=== PATIENT | female | born 1990 | race Caucasian/White ===

== ENCOUNTER 2018-04-02 19:59 | Emergency (ER) | payer SELFPAY ==
[2018-04-02] MEDS ORDERED: ACETAMINOPHEN 325 MG TABLET PO ONE (20:21)
--- NOTE | 2018-04-02 20:27 | ER Document Report ---
ED General - General Chief Complaint: Pain All Over Stated Complaint: FATIGUE,BODY SWEAT,BODY ACHES Time Seen by Provider: 04/02/18 20:11 Mode of Arrival: Ambulatory Notes: 27-year-old female presents to ED for body aches fever, fatigue, and headache. Temperature is 100.5 pulse is 123apically and O2 sat is 100% at this time . TRAVEL OUTSIDE OF THE [place] IN LAST 30 DAYS: No - HPI Onset: Other - 2 days Onset/Duration: Gradual, Worse Quality of pain: Achy Severity: Mild Pain Level: 2 Associated symptoms: Body/muscle aches, Chills, Nonproductive cough, Fever, Rhinnorhea, Sinus pain/drainage Exacerbated by: Denies Relieved by: Denies Similar symptoms previously: Yes Recently seen / treated by doctor: No - Related Data Allergies/Adverse Reactions: No Known Allergies Allergy (Verified 04/02/18 20:00) Past Medical History - General Information source: Patient - Social History Smoking Status: Never Smoker Cigarette use (# per day): No Chew tobacco use (# tins/day): No Smoking Education Provided: No Frequency of alcohol use: None Drug Abuse: None Lives with: Family Family History: Reviewed & Not Pertinent Patient has suicidal ideation: No Patient has homicidal ideation: No - Past Medical History Cardiac Medical History: Reports: None Pulmonary Medical History: Reports: None EENT Medical History: Reports: None Neurological Medical History: Reports: None Endocrine Medical History: Reports: None Renal/ Medical History: Reports: None Malignancy Medical History: Reports: None GI Medical History: Reports: None Musculoskeletal Medical History: Reports None Skin Medical History: Reports None Psychiatric Medical History: Reports: None Traumatic Medical History: Reports: None Infectious Medical History: Reports: None Past Surgical History: Reports: Hx Section - 08/06/14 - Immunizations Immunizations up to date: Yes Review of Systems - Review of Systems Constitutional: Chills, Fever, Malaise, Recent illness EENT: Nose pain, Nose congestion, Nose discharge, Sinus pressure, Sinus discharge Cardiovascular: No symptoms reported Respiratory: Cough Gastrointestinal: No symptoms reported Genitourinary: No symptoms reported Female Genitourinary: No symptoms reported Musculoskeletal: No symptoms reported Skin: No symptoms reported Hematologic/Lymphatic: No symptoms reported Neurological/Psychological: No symptoms reported -: Yes All other systems reviewed and negative Physical Exam - Vital signs Vitals: Temp Pulse Resp BP Pulse Ox 99.8 F 134 H 22 H 118/78 100 04/02/18 20:05 04/02/18 20:05 04/02/18 20:05 04/02/18 20:05 04/02/18 20:05 Interpretation: Tachycardic - 124, Tachypneic - 24, Febrile - 100.5 - General General appearance: Appears well, Alert - HEENT Head: Normocephalic, Atraumatic Eyes: Normal Pupils: PERRL Ears: Normal External canal: Normal Tympanic membrane: Normal Sinus: Normal Nasal: Purulent discharge, Clear rhinorrhea Mouth/Lips: Normal Mucous membranes: Normal Pharynx: Normal Neck: Normal - Respiratory Respiratory status: No respiratory distress Chest status: Nontender Breath sounds: Normal Chest palpation: Normal - Cardiovascular Rhythm: Regular Heart sounds: Normal auscultation Murmur: No - Abdominal Inspection: Normal Distension: No distension Bowel sounds: Normal Tenderness: Nontender Organomegaly: No organomegaly - Back Back: Normal, Nontender - Extremities General upper extremity: Normal inspection, Nontender, Normal color, Normal ROM , Normal temperature General lower extremity: Normal inspection, Nontender, Normal color, Normal ROM , Normal temperature, Normal weight bearing. No: Soha's sign - Neurological Neuro grossly intact: Yes Cognition: Normal Orientation: AAOx4 Aniket Coma Scale Eye Opening: Spontaneous Horicon Coma Scale Verbal: Oriented Aniket Coma Scale Motor: Obeys Commands Aniket Coma Scale Total: 15 Speech: Normal Motor strength normal: LUE, RUE, LLE, RLE Sensory: Normal - Psychological Associated symptoms: Normal affect, Normal mood - Skin Skin Temperature: Warm Skin Moisture: Dry Skin Color: Normal Course - Re-evaluation Re-evalutation: 04/03/18 00:30 Patient treated with Macrobid, Compazine, Benadryl, and ibuprofen for her UTI and headache. She did have a fever when she first came in as well as an elevated pulse of 124 1 just I first examined her and when she discharged her pulse was 100. She was also given 2 L of fluids. Her fever went from 100.5-97. - Vital Signs Vital signs: Temp Pulse Resp BP Pulse Ox 98.2 F 100 19 104/63 93 04/02/18 22:33 04/02/18 22:33 04/02/18 22:33 04/02/18 22:33 04/02/18 22:33 - Laboratory Result Diagrams: 04/02/18 20:30 04/02/18 21:38 Laboratory results interpreted by me: 04/02/18 04/02/18 04/02/18 20:30 20:52 21:38 WBC 16.1 H Absolute Neutrophils 11.4 H Absolute Monocytes 1.8 H Sodium 134.8 L Carbon Dioxide 21 L Albumin 3.4 L Urine Protein 30 H Urine Ketones 20 H Ur Leukocyte Esterase SMALL H - Diagnostic Test Radiology reviewed: Image reviewed, Reports reviewed Discharge - Discharge Clinical Impression: UTI (urinary tract infection) Qualifiers: Urinary tract infection type: site unspecified Hematuria presence: without hematuria Qualified Code(s): N39.0 - Urinary tract infection, site not specified Headache Qualifiers: Headache type: unspecified Headache chronicity pattern: unspecified pattern Intractability: not intractable Qualified Code(s): R51 - Headache Condition: Stable Disposition: HOME, SELF-CARE Instructions: Family Physicians / Practices Additional Instructions: URINARY TRACT INFECTION: Your evaluation indicates that you have a urinary tract infection. This is due to germs growing in the bladder. This is a common problem. This infection usually responds quickly to antibiotics. Your antibiotic should be taken exactly as prescribed. Drink plenty of fluids -- three to four quarts a day. Occasionally, a bladder anesthetic will be prescribed to help stop the feeling of urgency until the antibiotic has a chance to clear the infection. This may cause your urine to be dark orange. Certain urine infections require a culture. If the doctor obtained a culture, the results will be back in two days. You should call to see if a change in treatment is needed. A repeat urinalysis after you finish treatment is often recommended. The physician will let you know if further testing is required. Call the doctor if you develop fever, chills, flank pain, inability to urinate, or blood in the urine. HEADACHE: The physician does not feel that the headache you are experiencing has a serious underlying cause. Most headaches are due to emotional stress, with resultant muscle tension (tension headache). Occasionally, headaches are secondary to changes in the blood vessels of the scalp (vascular headache and migraine headache). Sometimes, a headache is the first symptom of another developing illness, such as a viral infection. You have no evidence of stroke, bleeding, meningitis, or other serious cause of your headache. The treatment of headaches varies with the severity and cause of the pain. Not all headaches need pain shots. In fact, there is evidence that using narcotics for headaches may make them worse in the long run. The physician will determine the therapy that's in your best interest. If you develop a fever, if the headache is different from any you've previously experienced, or if the headache progressively worsens, then call your physician at once or go to the emergency room. USE OF DIPHENHYDRAMINE: Diphenhydramine (Benadryl) is an antihistamine and has been recommended to help treat your headache and to prevent side effects of other medications used to treat headaches. The medication can be repeated four times daily. Age Elixir (12.5 mg/tsp) 25 mg pill adult 1-2 tabs Antihistamines may cause drowsiness, especially with the first dose. Do not operate machinery or drive while under the effects of the medication. Do not combine the medication with alcohol, or with any other medication without talking to your doctor. COMPAZINE FOR HEADACHE: You have received therapy for headaches, using Compazine. This treatment is dramatically successful in relieving the headache in about 50 percent of cases. When it works, it provides a rapid method of eliminating the headache without resorting to narcotics (and the problems associated with them). Most patients still feel fully alert after the Compazine, but others may be slightly drowsy. It's best not to drive or work with machinery for six to eight hours. Do not take alcohol or other medication unless you discuss it with the doctor. If you develop tightness and spasms in your muscles, especially the neck and tongue, you should return. This is a side effect which can be treated. Ibuprofen Ibuprofen is an excellent, safe drug for pain control. In addition, it has potent antiinflammatory effects which are beneficial, especially in the treatment of injuries, arthritis, or tendonitis. It's best to take ibuprofen with food. Persons with ulcer disease or allergy to aspirin should notify their physician of this before taking ibuprofen. Take the medication exactly as prescribed. Don't take additional doses unless instructed to do so by your doctor. If you develop wheezing, shortness of breath, hives, faintness, stomach pain, vomiting, or dark black stools, return for re-evaluation at once. NITROFURANTOIN (MACRODANTIN, MACROBID): You have received a prescription for nitrofurantoin (Macrodantin). This antibiotic is used for urinary tract infections. Women who are or nursing should notify the physician before taking this medicine. If you have ever had a problem caused by this medication in the past, be sure the physician is aware of it. Common side effects of this medicine include nausea, vomiting, or decreased appetite. Notify your physician if these side effects become severe. Immediately stop this medicine and call the physician if you develop cough , shortness of breath, chest pain, weakness, jaundice (yellow color of the skin and whites of the eyes), or a skin rash. FOLLOW-UP CARE: If you have been referred to a physician for follow-up care, call the physician s office for an appointment as you were instructed or within the next two days. If you experience worsening or a significant change in your symptoms, notify the physician immediately or return to the Emergency Department at any time for re-evaluation. Prescriptions: Prochlorperazine Maleate [Compazine 10 mg Tablet] 10 mg PO Q6HP PRN #10 tablet PRN Reason: Nitrofurantoin Monohyd/M-Cryst [Macrobid 100 mg Capsule] 100 mg PO BID #14 capsule
[2018-04-02 20:54] LABS: ABSOLUTE BASOPHILS # (AUTO) 0.1 10^3/uL (0.0-0.2); ABSOLUTE LYMPHOCYTES (AUTO) 2.8 10^3/uL (0.5-4.7); ABSOLUTE MONOCYTES (AUTO) 1.8 10^3/uL (0.1-1.4); ABSOLUTE NEUT (AUTO) 11.4 10^3/uL (1.7-8.2); BASOPHILS % (AUTO) 0.4 % (0-2); EOSINOPHILS % (AUTO) 0.2 % (0-6); HEMATOCRIT 44.3 % (36.0-47.0); HEMOGLOBIN 14.8 g/dL (12.0-15.5); LYMPHOCYTES % (AUTO) 17.6 % (13-45); MEAN CORPUSCULAR HEMOGLOBIN 28.4 pg (27.0-33.4); MEAN CORPUSCULAR HGB CONC 33.4 g/dL (32.0-36.0); MEAN CORPUSCULAR VOLUME 85 fl (80-97); MONOCYTES % (AUTO) 11.3 % (3-13); PLATELET COUNT 274 10^3/uL (150-450); RED BLOOD COUNT 5.23 10^6/uL (3.72-5.28); RED CELL DISTRIBUTION WIDTH 13.2 % (11.5-14.0); SEGMENTED NEUTROPHILS % (AUTO) 70.5 % (42-78); TOTAL CELLS COUNTED % (AUTO) 100 %; WHITE BLOOD COUNT 16.1 10^3/uL (4.0-10.5)
--- NOTE | 2018-04-02 21:02 | RADIOLOGY REPORT (SQ) ---
EXAM DESCRIPTION: CHEST 2 VIEWS COMPLETED DATE/TIME: 04/02/2018 8:50 pm REASON FOR STUDY: fever body aches COMPARISON: None. EXAM PARAMETERS: NUMBER OF VIEWS: two views TECHNIQUE: Digital Frontal and Lateral radiographic views of the chest acquired. RADIATION DOSE: NA LIMITATIONS: none FINDINGS: LUNGS AND PLEURA: No opacities, masses or pneumothorax. No pleural effusion. MEDIASTINUM AND HILAR STRUCTURES: No masses or contour abnormalities. HEART AND VASCULAR STRUCTURES: Heart normal size. No evidence for failure. BONES: No acute findings. HARDWARE: None in the chest. OTHER: No other significant finding. IMPRESSION: NO ACUTE RADIOGRAPHIC FINDING IN THE CHEST. TECHNICAL DOCUMENTATION: JOB ID: [id number] [employer]- All Rights Reserved Reading location - IP/workstation name: [email or web address]
[2018-04-02 21:23] LABS: APPEARANCE,URINE CLOUDY; BILIRUBIN,URINE NEGATIVE (NEGATIVE); COLOR,URINE AMBER; GLUCOSE, URINE NEGATIVE (NEGATIVE); KETONES,URINE 20 mg/dL (NEGATIVE); LEUKOCYTE ESTERASE,URINE SMALL (NEGATIVE); NITRITE,URINE NEGATIVE (NEGATIVE); PROTEIN,URINE 30 mg/dL (NEGATIVE); URINE SPECIFIC GRAVITY 1.016; UROBILINOGEN,URINE NEGATIVE mg/dL (<2.0)
[2018-04-02] MEDS ORDERED: PROCHLORPERAZINE MALEATE 10 MG TABLET PO ONE (21:40)
[2018-04-02] MEDS ORDERED: DIPHENHYDRAMINE HCL 50 MG CAPSULE PO ONE (21:40)
[2018-04-02] MEDS: RINGERS SOLUTION,LACTATED 1,000 ML IV PRN ×2 (21:45→22:27)
[2018-04-02 22:08] LABS: ALANINE AMINOTRANSFERASE 22 U/L (9-52); ALBUMIN 3.4 g/dL (3.5-5.0); ALKALINE PHOSPHATASE 66 U/L (38-126); ANION GAP 8 (5-19); ASPARTATE AMINO TRANSFERASE 17 U/L (14-36); BILIRUBIN,DIRECT 0.3 mg/dL (0.0-0.4); BILIRUBIN,TOTAL 1.1 mg/dL (0.2-1.3); BLOOD UREA NITROGEN 8 mg/dL (7-20); CALCIUM 9.2 mg/dL (8.4-10.2); CARBON DIOXIDE 21 mmol/L (22-30); CHLORIDE 106 mmol/L (98-107); GLUCOSE 95 mg/dL (75-110); POTASSIUM 3.8 mmol/L (3.6-5.0); SODIUM 134.8 mmol/L (137-145); TOTAL PROTEIN 6.4 g/dL (6.3-8.2)
[2018-04-02] MEDS ORDERED: NITROFURANTOIN MONOHYD/M-CRYST 100 MG CAPSULE PO ONE (22:21)
[2018-04-02 22:38] VITALS: BP 104/63
== END 2018-04-02 22:39 | disposition home or self-care (01) ==
LOC: ER 19:59
DX: N39.0 Urinary tract infection, site not specified (principal); R51 Headache; M79.1 Myalgia; R53.83 Other fatigue; R50.9 Fever, unspecified; J34.89 Other specified disorders of nose and nasal sinuses; R05 Cough; R53.81 Other malaise; R09.81 Nasal congestion
CPT/HCPCS: 99284; 36415; 87086; 84703; 85025; 87088; 80053; 81001; 87186; 83605; 71046; S0183; J7120; J8499

== ENCOUNTER 2018-12-20 21:55 | Emergency (ER) | payer MEDICAID ==
--- NOTE | 2018-12-20 23:18 | ER Document Report ---
HPI - HPI Patient complains to provider of: Anxiety Time Seen by Provider: 12/20/18 23:12 Pain Level: 2 Context: Patient is otherwise healthy 28-year-old female presents to the emergency department for what she thinks is an anxiety attack. Patient states she had some shortness of breath, feeling very tired and tightening her chest. States she feels as though her chest is sore. States she feels like she "ran a marathon." Patient states the last 3 days she has had extensive arguments with her mother. They have become very heated and she has been intermittently crying off and on. Patient states "I just do not know what to do." Patient is in tears when speaking to me. Patient is adamantly denying suicidal ideations or homicidal ideations. Patient's denying any chest pain at rest at this time. She is denying any shortness of breath. States she has not been around her mom for the last couple of hours and feels as though when she goes home she will continue to not be around her mother. States her grandmother is in the emergency room with her. - REPRODUCTIVE LMP: 12/08 Reproductive: DENIES: : Past Medical History - General Information source: Patient - Social History Smoking Status: Unknown if Ever Smoked Family History: Reviewed & Not Pertinent Renal/ Medical History: Denies: Hx Peritoneal Dialysis Past Surgical History: Reports: Hx Section - 08/06/14 - Immunizations Immunizations up to date: Yes Vertical Provider Document - CONSTITUTIONAL Agree With Documented VS: Yes Notes: GENERAL: Alert, interacts well. Intermittently crying but calms down easily with conversation HEAD: Normocephalic, atraumatic. EYES: Pupils equal, round, and reactive to light. Extraocular movements intact. ENT: Oral mucosa moist, tongue midline. NECK: Full range of motion. Supple. Trachea midline. LUNGS: Clear to auscultation bilaterally, no wheezes, rales, or rhonchi. No respiratory distress. HEART: Regular rate and rhythm. No murmur ABDOMEN: Soft, non-tender. Non-distended. Bowel sounds present in all 4 quadrants. EXTREMITIES: Moves all 4 extremities spontaneously. No edema, normal radial and dorsalis pedis pulses bilaterally. No cyanosis. BACK: no cervical, thoracic, lumbar midline tenderness. No saddle anesthesia, normal distal neurovascular exam. NEUROLOGICAL: Alert and oriented x3. Normal speech. cranial nerves II through XII grossly intact PSYCH: Normal affect, depressed mood. SKIN: Warm, dry, normal turgor. No rashes or lesions noted. - INFECTION CONTROL TRAVEL OUTSIDE OF THE [place] IN LAST 30 DAYS: No Course - Re-evaluation Re-evalutation: 12/20/18 23:14 I have discussed at length with patient my recommendations. I discussed that unfortunately do not have mental health evaluators in the emergency department at this time. I have discussed giving the patient the mental health team community outpatient referral list. I have also discussed that I will put the patient's name and contact information in the full been for social work and psychiatric services. I discussed that she could stay in the emergency department until the morning to personally meet with a mental health evaluators. Patient states she is here with her grandmother and she feels as if she is safe going home with her grandmother. States she will follow-up outpatient. Patient continues to deny suicidal or homicidal ideations. Patient states she has some minor discomfort more so when you push the anterior aspect of her chest. Patient's denying any respiratory distress at this time. Patient states "I just feel like I cannot fight with her anymore." She is speaking about the argument she has been having with her mother. Patient states his arguments have never become physical they are always verbal. I feel confident in patient discharge home at this time. Again patient demographic sticker was placed in the referral box for social work in mental health. - Vital Signs Vital signs: Temp Pulse Resp BP Pulse Ox 97.7 F 94 20 120/79 96 12/20/18 22:14 12/20/18 22:14 12/20/18 22:14 12/20/18 22:14 12/20/18 22:14 Discharge - Discharge Clinical Impression: Anxiety Condition: Stable Disposition: HOME, SELF-CARE Instructions: Anxiety ([facility]) Additional Instructions: As we discussed you have been seen and treated in the emergency department for potential anxiety attack. It is normal to have your heart race and also feel short of breath during anxiety attack. No other your come down your symptoms have resolved. I have given you a list of mental health team community outpatient referrals and also placed your information in the referral box for mental health evaluators here in the emergency room. Hopefully they will reach out to you in the next couple of days. Please make sure you also take the referral list I have given you and reach out to 1 of these facilities. Please also return to the emergency room should you have any other concerns. Forms: Return to Work
[2018-12-20 23:35] VITALS: BP 118/72
--- NOTE | 2018-12-21 23:45 | EKG REPORT ---
SEVERITY:- NORMAL ECG - SINUS RHYTHM : Confirmed by: Bonny Mcgrath MD 21-Dec-2018 23:44:15
== END 2018-12-20 23:35 | disposition home or self-care (01) ==
LOC: ER 21:55
DX: F41.9 Anxiety disorder, unspecified (principal); R06.02 Shortness of breath; R53.83 Other fatigue; R07.89 Other chest pain
CPT/HCPCS: 93005; 93010; 99284

== ENCOUNTER 2020-01-11 05:40 | Emergency (ER) | payer MEDICAID, OTHER ==
[2020-01-11] MEDS ORDERED: NORMAL SALINE 1000 ML 1,000 ML IV ONE (06:13)
[2020-01-11] MEDS ORDERED: MORPHINE SULFATE 10 MG/ML INJ IV ONE (06:13)
--- NOTE | 2020-01-11 06:14 | ER Document Report ---
ED Medical Screen (RME) - General Chief Complaint: Abdominal Pain Stated Complaint: LEFT SIDED ABDOMINAL PAIN Time Seen by Provider: 01/11/20 05:57 Notes: 29-year-old female with chief complaint of sudden onset upper abdominal pain that started just prior to arrival and woke her from her sleep. She reports the pain is sharp and stabbing, made her nauseated. She points to all across her upper abdomen when I asked where the location of pain is. She denies any surgeries, daily medications, alcohol, recreational drugs, smoking, or medical history. She states she is not currently sexually active. She denies flank pain, chest pain, urinary symptoms, vaginal bleeding or discharge. She denies history of the same pain. She comes by EMS and was given 4 mg of Zofran. TRAVEL OUTSIDE OF THE [place] IN LAST 30 DAYS: No - Related Data Allergies/Adverse Reactions: No Known Allergies Allergy (Verified 01/11/20 05:50) Past Medical History Renal/ Medical History: Denies: Hx Peritoneal Dialysis Past Surgical History: Reports: Hx Section - 08/06/14 - Immunizations Immunizations up to date: Yes Physical Exam - Vital signs Vitals: Temp Pulse Resp BP Pulse Ox 97.4 F 98 25 H 118/78 100 01/11/20 05:51 01/11/20 05:51 01/11/20 05:51 01/11/20 05:51 01/11/20 05:51 - Abdominal Tenderness: Tender - Tender all across the upper abdomen in every location, nonspecific, lower abdomen is benign Course - Re-evaluation Re-evalutation: I have greeted and performed a rapid initial assessment of this patient. A comprehensive ED assessment and evaluation of the patient, analysis of test results and completion of the medical decision making process will be conducted by additional ED providers. - Vital Signs Vital signs: Temp Pulse Resp BP Pulse Ox 97.4 F 98 25 H 118/78 100 01/11/20 05:51 01/11/20 05:51 01/11/20 05:51 01/11/20 05:51 01/11/20 05:51
[2020-01-11 06:18] LABS: ABSOLUTE BASOPHILS # (AUTO) 0.1 10^3/uL (0.0-0.2); ABSOLUTE EOSINOPHILS # (AUTO) 0.2 10^3/uL (0.0-0.6); ABSOLUTE LYMPHOCYTES (AUTO) 5.1 10^3/uL (0.5-4.7); ABSOLUTE MONOCYTES (AUTO) 0.9 10^3/uL (0.1-1.4); ABSOLUTE NEUT (AUTO) 5.9 10^3/uL (1.7-8.2); BASOPHILS % (AUTO) 0.7 % (0-2); EOSINOPHILS % (AUTO) 1.8 % (0-6); HEMATOCRIT 42.6 % (36.0-47.0); HEMOGLOBIN 14.5 g/dL (12.0-15.5); LYMPHOCYTES % (AUTO) 41.6 % (13-45); MEAN CORPUSCULAR HEMOGLOBIN 29.3 pg (27.0-33.4); MEAN CORPUSCULAR VOLUME 86 fl (80-97); MONOCYTES % (AUTO) 7.3 % (3-13); PLATELET COUNT 273 10^3/uL (150-450); RED BLOOD COUNT 4.94 10^6/uL (3.72-5.28); RED CELL DISTRIBUTION WIDTH 13.5 % (11.5-14.0); SEGMENTED NEUTROPHILS % (AUTO) 48.6 % (42-78); TOTAL CELLS COUNTED % (AUTO) 100 %; WHITE BLOOD COUNT 12.2 10^3/uL (4.0-10.5)
[2020-01-11 06:40] LABS: ALBUMIN 4.2 g/dL (3.5-5.0); ALKALINE PHOSPHATASE 56 U/L (38-126); ANION GAP 7 (5-19); ASPARTATE AMINO TRANSFERASE 24 U/L (14-36); BILIRUBIN,TOTAL 0.7 mg/dL (0.2-1.3); BLOOD UREA NITROGEN 14 mg/dL (7-20); CALCIUM 9.8 mg/dL (8.4-10.2); CARBON DIOXIDE 25 mmol/L (22-30); CHLORIDE 105 mmol/L (98-107); GLUCOSE 107 mg/dL (75-110); POTASSIUM 4.3 mmol/L (3.6-5.0); TOTAL PROTEIN 7.4 g/dL (6.3-8.2)
[2020-01-11 06:56] LABS: APPEARANCE,URINE CLOUDY; BILIRUBIN,URINE NEGATIVE (NEGATIVE); COLOR,URINE YELLOW; GLUCOSE, URINE NEGATIVE (NEGATIVE); KETONES,URINE NEGATIVE (NEGATIVE); LEUKOCYTE ESTERASE,URINE TRACE (NEGATIVE); NITRITE,URINE NEGATIVE (NEGATIVE); PROTEIN,URINE 30 mg/dL (NEGATIVE); URINE SPECIFIC GRAVITY 1.024; UROBILINOGEN,URINE NEGATIVE mg/dL (<2.0)
--- NOTE | 2020-01-11 07:19 | RADIOLOGY REPORT (SQ) ---
EXAM DESCRIPTION: US ABDOMEN LIMITED COMPLETED DATE/TME: 01/11/2020 06:12 CLINICAL HISTORY: 29 years Female, upper abd pain Comparison: None. LIMITATIONS: None. FINDINGS: Gallbladder, negative sonographic Stephenson's test, liver, a 0.3-cm diameter common bile duct, no intrahepatic ductal dilation, hepatopetal patent flow of the portal vein, 11-cm right kidney, pancreas, visualized vasculature/abdominal aorta, and no significant ascites appear otherwise unremarkable. IMPRESSION: Normal RUQ-Abdominal Sonogram.
--- NOTE | 2020-01-11 07:51 | RADIOLOGY REPORT (SQ) ---
EXAM DESCRIPTION: CT ABDOMEN PELVIS WITHOUT IV CONTRAST COMPLETED DATE/TME: 01/11/2020 07:11 CLINICAL HISTORY: 29 years, Female, llq abd pain/urinary urgency/left flank pain Comparison: None TECHNIQUE: Contiguous axial CT images of the abdomen and pelvis were obtained. Sagittal and coronal reformats were reviewed. This exam was performed according to our departmental dose-optimization program, which includes automated exposure control, adjustment of the mA and/or kV according to patient size and/or use of iterative reconstruction technique. FINDINGS: Lung bases: Mild hypoventilatory changes in the lung bases. Liver:Unremarkable. No focal liver lesion. Gallbladder:Unremarkable. No gallstones. No gallbladder wall thickening or pericholecystic fluid. Spleen:Unremarkable Pancreas: Pancreas is unremarkable. Adrenal glands:Within normal limits. Kidneys/ureters: Several tiny, approximately 1 mm or less renal calculi. No hydronephrosis. Left kidney is edematous in appearance with mild hydronephrosis and hydroureter. The distal ureters not well visualized and there are old pole pelvic phleboliths. Distal ureteral calculus is not visualized but suspected. Stomach/small bowel/colon: Stomach is unremarkable. Small bowel is unremarkable. Colon is unremarkable. Appendix: No evidence of appendicitis. Peritoneum: No free fluid. Vascular structures: within normal limits Lymph nodes: No abnormal lymph nodes. Bladder:Unremarkable. Pelvic organs: No acute abnormality Bones: No acute osseous abnormality. Soft tissues: Unremarkable.. IMPRESSION: Left hydronephrosis and hydroureter. The distal ureter is not clearly visualized and there are multiple pelvic phleboliths which makes visualization of a ureteral calculus difficult. An obstructing stone is not discretely seen but suspected. Alternatively, this appearance can be seen with a recently passed calculus. There is no hydronephrosis on the right. No other acute findings in the abdomen or pelvis.
[2020-01-11] MEDS ORDERED: KETOROLAC TROMETHAMINE INJ/PF 30 MG/1 ML SDV IV ONE (08:21)
--- NOTE | 2020-01-11 08:30 | ER Document Report ---
Entered by ADRIAN EARL SCRIBE 01/11/20 0730 Acting as scribe for:RAUL MURRAY MD ED GI/ - General Chief Complaint: Abdominal Pain Stated Complaint: LEFT SIDED ABDOMINAL PAIN Time Seen by Provider: 01/11/20 05:57 Primary Care Provider: JAE KING PA-C [Primary Care Provider] - Follow up as needed Mode of Arrival: Ambulatory Information source: Patient Notes: This 29 year old female patient presents to the emergency department today with complaints of left sided abdominal pain that woke her up from sleep. Patient states that she has also had nausea, vomiting, diarrhea, and urinary urgency. Patient states she feels like she has to go to the bathroom but she does not urinate much when she tries to go. Patient mentions that she has had a lot of recent stressors since "December 25", stating that her ex- is "trying to get custody of their child". Patient states her last menstrual period was the beginning of December and she is not on control but she does not have concerns for . Patient denies a history of ovarian cyst, diverticulitis, or gastric ulcers. Patient has any vaginal bleeding, vaginal discharge, fevers, HI or SI. TRAVEL OUTSIDE OF THE [place] IN LAST 30 DAYS: No - Related Data Allergies/Adverse Reactions: No Known Allergies Allergy (Verified 01/11/20 05:50) Past Medical History - General Information source: Patient - Social History Smoking Status: Never Smoker Cigarette use (# per day): No Frequency of alcohol use: None Drug Abuse: None Lives with: Family Family History: Reviewed & Not Pertinent Patient has homicidal ideation: No - Medical History Medical History: Negative Past Surgical History: Reports: Hx Section - 08/06/14 - Immunizations Immunizations up to date: Yes Review of Systems - Review of Systems Constitutional: denies: Fever EENT: No symptoms reported Cardiovascular: No symptoms reported Respiratory: No symptoms reported Gastrointestinal: Abdomen distended, Abdominal pain Genitourinary: See HPI, Frequency, Flank pain, Urgency Female Genitourinary: No symptoms reported Musculoskeletal: No symptoms reported Skin: No symptoms reported Hematologic/Lymphatic: No symptoms reported Neurological/Psychological: No symptoms reported -: Yes All other systems reviewed and negative Physical Exam - Vital signs Vitals: Temp Pulse Resp BP Pulse Ox 97.4 F 98 25 H 118/78 100 01/11/20 05:51 01/11/20 05:51 01/11/20 05:51 01/11/20 05:51 01/11/20 05:51 - Notes Notes: Physical Exam: General: Alert, appears well. HEENT: Normocephalic. Atraumatic. PERRL. Extraocular movements intact. Oropharynx clear. Neck: Supple. Non-tender. Respiratory: No respiratory distress. Clear and equal breath sounds bilaterally. Cardiovascular: Regular rate and rhythm. Abdominal: Left lower quadrant tenderness to palpation. No distension. Normal Bowel Sounds. Back: Mild left CVA tenderness to percussion. Extremities: Moves all four extremities. Upper extremities: Normal inspection. Normal ROM. Lower extremities: Normal inspection. No edema. Normal ROM. Neurological: Normal cognition. AAOx4. Normal speech. Psychological: Normal affect. Normal Mood. Skin: Warm. Dry. Normal color. Course - Re-evaluation Re-evalutation: 01/11/20 08:22 Patient is currently pain-free and not having any signs of nausea vomiting and feels much better. Apparently patient may have passed a left ureteral stone. On CT scan it was shown that there was hydronephrosis and hydroureter on the left distal stone was not clearly delineated inasmuch as patient has multiple phleboliths. No stone was seen in the bladder. - Vital Signs Vital signs: Temp Pulse Resp BP Pulse Ox 97.4 F 98 25 H 118/78 100 01/11/20 05:51 01/11/20 05:51 01/11/20 05:51 01/11/20 05:51 01/11/20 05:51 - Laboratory Result Diagrams: 01/11/20 06:06 01/11/20 06:06 Laboratory results interpreted by me: 01/11/20 01/11/20 06:02 06:06 WBC 12.2 H Absolute Lymphs (auto) 5.1 H Urine Protein 30 H Urine Blood LARGE H Ur Leukocyte Esterase TRACE H 01/11/20 08:23 Laboratory examinations was completely normal except for a large amount of blood in urine. - Diagnostic Test Radiology reviewed: Image reviewed, Reports reviewed - CT scan of abdomen and pelvis without contrast shows hydronephrosis on the left as well as hydroureter. Multiple phleboliths in the pelvis and could not delineate a ureteral stone versus phlebolith. Discharge - Discharge Clinical Impression: Kidney stone on left side Condition: Stable Disposition: HOME, SELF-CARE Additional Instructions: Kidney Stone You are passing or have passed a kidney stone. These stones are usually due to increased calcium or uric acid concentrations in your urine. Stones within the kidney itself are not painful. The pain occurs as the stone leaves the kidney to pass down the long tube, called the ureter, leading to the bladder. If the stone is small, it will usually pass by itself. Most patients can pass the stone at home. You will usually receive medications for pain, nausea or vomiting, and sometimes a medication to assist in passing the kidney stone. However, if the pain is very severe or if vomiting prevents you from taking oral pain medications, you may need to return for further treatment. Drink three or four quarts of fluids per day. You will be given pain medication (if needed) and urine strainers. Strain all your urine to see if the stone passes. If your doctor has asked you to bring the stone in for analysis, return with the stone once it has passed. Return if pain or vomiting become severe, if you develop a high fever, if you are unable to pass your urine, or if other unusual symptoms occur. Follow-up with Dr. Kiara Paredes, urologist for following up on ureteral stone on the left side. Prescriptions: Tamsulosin HCl [Flomax 0.4 mg Cap.sr] 0.4 mg PO DAILY #7 cap.sr.24h Ibuprofen [Motrin 800 mg Tablet] 800 mg PO Q8H PRN #15 tab PRN Reason: pain Hydrocodone/Acetaminophen [Seneca 5-325 mg Tabs (6 Tab/ER Disp)] 1 tab PO BID PRN 3 Days #6 tab PRN Reason: For Pain Ondansetron [Zofran Odt 4 mg Tablet] 1 - 2 tab PO Q4H PRN #15 tab.rapdis PRN Reason: For Nausea/Vomiting Referrals: JAE KING PA-C [Primary Care Provider] - Follow up as needed KIARA PAREDES MD [NO LOCAL MD] - Follow up in 3-5 days I personally performed the services described in the documentation, reviewed and edited the documentation which was dictated to the scribe in my presence, and it accurately records my words and actions.
[2020-01-11 08:57] VITALS: BP 103/62
== END 2020-01-11 09:03 | disposition home or self-care (01) ==
LOC: ER 05:40
DX: N20.0 Calculus of kidney (principal); R10.9 Unspecified abdominal pain; R11.2 Nausea with vomiting, unspecified; R19.7 Diarrhea, unspecified; R39.15 Urgency of urination
CPT/HCPCS: 99284; 96361; 96374; 96375; 36415; 83690; 85025; 81025; 80053; 81001; 76705; 74176; J1885; J2270; J7030